=== PATIENT | male | born 1935 | race Asian ===

== ENCOUNTER 2017-10-26 13:58 | Emergency (ER) | payer OTHER ==
[~2017-10-26] VITALS: Ht 165.1 cm; Wt 53.8 kg
[~2017-10-26 13:58] MED LIST: ASPI-556 PO; ATOR40TA28 PO; CLOP75; CODE118S2 PO; ENAL5TAB; LORA10TA7 PO; NITR0.4T10; PANT40TA25
[2017-10-26] MEDS ORDERED: ENAL5 PO (14:06)
[2017-10-26] MEDS: SODIUM CHLORIDE 0.9% 1,000 ML IV ONE ×2 (14:40→16:45)
[2017-10-26 14:49] LABS: BASOPHILS % (AUTO) 0.5 % (0.0-2.0); EOSINOPHILS % (AUTO) 1.6 % (1.0-6.0); HEMATOCRIT 34.4 % (41-53); HEMOGLOBIN 11.4 g/dL (13.5-17.5); LYMPHOCYTES # (AUTO) 0.9 K/uL (1.0-4.8); LYMPHOCYTES % (AUTO) 13.5 % (22.0-44.0); MEAN CORPUSCULAR HEMOGLOBIN 29.1 pg (26.0-34.0); MEAN CORPUSCULAR HGB CONC 33.3 G/dL (31.0-37.0); MEAN CORPUSCULAR VOLUME 87 fL (80-100); MONOCYTES # (AUTO) 0.5 K/uL (0.1-1.0); MONOCYTES % (AUTO) 7.3 % (2.0-9.0); NEUTROPHILS # (AUTO) 5.2 K/uL (1.8-7.7); NEUTROPHILS % (AUTO) 77.1 % (40.0-70.0); PLATELET COUNT (AUTO) 144 K/uL (150-450); RED BLOOD CELL COUNT(AUTO) 3.93 MIL/uL (4.50-5.90); RED CELL DISTRIBUTION WIDTH 14.4 % (11.5-14.5)
[2017-10-26 14:55] LABS: CALCIUM, TOTAL 8.3 mg/dL (8.8-10.5); CREATININE 1.56 mg/dL (0.60-1.30); POTASSIUM 4.1 mmol/L (3.5-5.1)
[2017-10-26 15:21] LABS: ALBUMIN 3.4 g/dL (3.4-5.0); BILIRUBIN,TOTAL 0.6 mg/dL (0.1-1.0); CKMB RELATIVE INDEX 2.5 % (0.0-4.0); CREATINE KINASE MB 6.8 ng/mL (0-5); TOTAL PROTEIN, SERUM 6.3 g/dL (6.4-8.2)
[2017-10-26 15:35] LABS: APPEARANCE,URINE CLEAR (CLEAR); BILIRUBIN,URINE NEGATIVE (NEGATIVE); GLUCOSE, URINE (UA) NEGATIVE (NEGATIVE); KETONES,URINE NEGATIVE (NEGATIVE); LEUKOCYTE ESTERASE ,URINE NEGATIVE (NEGATIVE); NITRATE,URINE NEGATIVE (NEGATIVE); OCCULT BLOOD,URINE NEGATIVE (NEGATIVE); PH,URINE 5.5 (5.0-8.0); PROTEIN,URINE TRACE (NEGATIVE); UROBILINOGEN,URINE 0.2 mg/dL (<=1.0)
[2017-10-26] MEDS ORDERED: IOVERSOL 350 MG/ML 100 ML VIAL ONE (15:49)
[2017-10-26] MEDS ORDERED: SODIUM CHLORIDE 0.9% 100 ML ONE (15:49)
[2017-10-26] MEDS: ACETAMINOPHEN 500 MG TABLET PO ONE (17:03)
[2017-10-26 17:26] VITALS: BP 131/73
== END 2017-10-26 17:59 | disposition short-term general hospital (02) ==
LOC: EMS 14:08
DX: S36.039A Unspecified laceration of spleen, initial encounter (principal); R10.12 Left upper quadrant pain; I25.10 Atherosclerotic heart disease of native coronary artery without angina pectoris; E78.00 Pure hypercholesterolemia, unspecified; I10 Essential (primary) hypertension; Z86.73 Personal history of transient ischemic attack (TIA), and cerebral infarction without residual deficits; Z79.82 Long term (current) use of aspirin; W19.XXXA Unspecified fall, initial encounter; Y93.89 Activity, other specified; Y92.89 Other specified places as the place of occurrence of the external cause; Y99.8 Other external cause status
CPT/HCPCS: 36415; 70450; 71045; 71260; 72193; 74160; 80053; 81003; 82550; 82553; 82962; 83880; 84484; 85025; 93005; 96360; 99291; J7030; J7050; Q9967